=== PATIENT | female | born 1990 | race Caucasian/White ===

== ENCOUNTER 2019-05-17 10:33 | Emergency (ER) | payer BC, SELFPAY ==
[2019-05-17 10:45] VITALS: BP 107/62; PULSE 63; RESP 20; TEMP 36.8; O2SAT 100
--- NOTE | 2019-05-17 10:45 | ED.URI ---
HPI - URI/Sore Throat General Chief Complaint: Upper Respiratory Infection Stated Complaint: cough/drainage Source: patient and RN notes reviewed Mode of arrival: ambulatory Limitations: no limitations History of Present Illness HPI Narrative: 28-year-old female presents with concern for 2-week history of sinus drainage, postnasal drainage, sore throat. Reports occasional cough from drainage. Reports taking ibuprofen with no relief. She denies fever, chills, body aches, malaise. MD elicited complaint: sore throat Related Data Allergies Allergy/AdvReac Type Severity Reaction Status Date / Time No Known Allergies Allergy Verified 05/17/19 10:47 Review of Systems Review of Systems: Narrative: CONSTITUTIONAL: Denies malaise, chills, sweats, or fever. EYES: Denies visual changes, redness, or discharge. ENT: Reports rhinorrhea, congestion, sinus pain, otalgia and sore throat. CARDIOVASCULAR: Denies chest pain, palpitations, or edema. RESPIRATORY: Reports occasional cough. Denies dyspnea. GASTROINTESTINAL: Denies abdominal pain, nausea, vomiting, diarrhea SKIN: Denies rash or itching. MUSCULOSKELETAL: Denies myalgia. NEUROLOGIC: Denies headache. All systems reviewed & are unremarkable except as noted in HPI and below PMFSH Comments At time of signature, agree with nursing past medical, surgical, social and family history. There is no relevant family history pertinent to the presenting complaint Exam Narrative: Exam Narrative: GENERAL: Well-appearing, well-nourished, and in no acute distress. HEAD: Normocephalic EYES: PERRLA, conjunctivae clear ENT: Nares clear, turbinates edematous and erythematous, green discharge, sinus tenderness. Mucous membranes moist. TM pearly villalba with dull light reflex bilaterally; no tragal tenderness. Oropharynx erythematous without lesions. Tonsils not enlarged and without exudate, no drooling, no hoarseness, no trismus. NECK: Supple. No lymphadenopathy CHEST: Clear to auscultation, breath sounds equal. No wheezing, rhonchi, rales, or stridor. No respiratory distress, speaks in full sentences. HEART: Regular rate and rhythm. No murmur heard. Normal peripheral pulses. SKIN: Warm, dry, no rash. NEURO: Alert and oriented x3. PSYCH: Normal mood and affect Course Course Emergency Course: Patient is aware of diagnosis, understands and agrees to treatment plan. Anticipatory guidance given. Patient agrees to follow-up as directed and is aware of reasons to seek care at the emergency department. Portions of this record may have been created with voice recognition software Vital Signs Vital signs: Vital Signs Temperature 98.3 F 05/17/19 10:45 Pulse Rate 63 05/17/19 10:45 Respiratory Rate 20 05/17/19 10:45 Blood Pressure 107/62 05/17/19 10:45 Pulse Oximetry 100 05/17/19 10:45 Temperature 98.3 F 05/17/19 10:45 Pulse Rate 63 05/17/19 10:45 Respiratory Rate 20 05/17/19 10:45 Blood Pressure 107/62 05/17/19 10:45 Pulse Oximetry 100 05/17/19 10:45 Reviewed. MDM - URI/Sore Throat MDM Narrative Medical decision making narrative: Differential diagnosis considered: Strep pharyngitis, allergic rhinitis, upper respiratory tract infection, sinusitis, rhinosinusitis, nasopharyngitis. viral pharyngitis, otitis media, otitis externa, pneumonia, bronchitis, viral cough syndrome, viral syndrome, and influenza. Exam findings show no acute concerns or changes; patient is non-toxic appearing and is in no distress. Patient is appropriate for outpatient treatment and follow-up. Lab Data Labs: Strep Screen Presumptive Negative *(Reference Range: Negative)* Critical Care Time Critical Care Time Critical Care Time: No Discharge Plan Discharge Clinical Impression: Acute bacterial sinusitis Patient Disposition: Home, Self-Care Condition: Stable Instructions: Antibiotic Form Additional Instructions: Take medications as directed Nonprescripti
== END 2019-05-17 11:10 | disposition home or self-care (01) ==
PROVIDERS: Emergency Provider Nurse Practitioner
DX: J01.90 Acute sinusitis, unspecified (principal)
CPT/HCPCS: 87081; 87880; 99213; G0463

== ENCOUNTER 2019-06-20 12:14 | Emergency (ER) | payer BC, SELFPAY ==
[2019-06-20 12:18] VITALS: BP 113/81; PULSE 80; RESP 16; TEMP 36.3; O2SAT 100
--- NOTE | 2019-06-20 12:30 | ED.GENADULT ---
HPI - General Adult General Chief complaint: Upper Respiratory Infection Stated complaint: COUGH/SORE THROAT/CONGESTION Time Seen by Provider: 06/20/19 12:32 Source: patient and RN notes reviewed Mode of arrival: ambulatory Limitations: no limitations History of Present Illness HPI narrative: This is a 28 years old female presents to the office for an evaluation of cough for two weeks. Associated with fever, sore throat and congestion. 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 She got a phone call this morning that her test was negative. She concerns about going back to work on Thursday; would like me to write a note for her manager [employer] so maybe they can pull her off the COVID unit. She has been taking Mucinex for cough. Related Data Home Medications Medication Instructions Recorded Confirmed Mucinex 06/20/19 Allergies Allergy/AdvReac Type Severity Reaction Status Date / Time No Known Allergies Allergy Verified 06/20/19 12:29 Review of Systems Review of Systems: Narrative: CONSTITUTIONAL: Denies fever or chills for the last few days ENT: Reports bad sore throat and nasal congestion CARDIOVASCULAR: Denies chest pain RESPIRATORY: Denies dyspnea, wheezing. Reports cough GASTROINTESTINAL: Denies abdominal pain, nausea, vomiting SKIN: Denies rash MUSCULOSKELETAL: Denies acute back pain NEUROLOGIC: Denies lightheaded PMFSH Social History Social History (Updated 06/20/19 @ 13:01 by JAIME Boyle) Smoking status: Never smoker Comments At time of signature, I agree with nursing past medical, surgical, social and family history. There is no relevant family history pertinent to the presenting complaint. Exam Narrative: Exam Narrative: GENERAL: This is a well-nourished, well-developed patient, in no apparent distress. EARS: External ears normal, auditory canals clear and without drainage, TMs normal without perforation. Hearing grossly intact. NOSE: External nose normal with no obvious nasal discharge, nares without redness, no rhinorrhea. THROAT: Mucous membranes moist, posterior pharynx clear. NECK: Neck supple, non-tender without lymphadenopathy, masses or thyromegaly. CARDIOVASCULAR: Regular rate and rhythm without murmurs, gallops, or rubs. RESPIRATORY: Clear to auscultation. Breath sounds equal bilaterally. No wheezes, rales, or rhonchi. GASTROINTESTINAL: Abdomen soft, non-tender, nondistended. Bowel sounds are active. No hepato-splenomegaly, or palpable masses. No guarding. SKIN: warm, intact with no suspicious lesions or rash, good texture and turgor. NEURO: awake, alert, and oriented to person, place and time. There were no obvious focal neurologic abnormalities. Steady gait [place] Coma Scale Eye Opening: Spontaneous 4 [place] Coma Scale Motor: Obeys Commands 6 [place] Coma Scale Verbal: Oriented 5 Course Vital Signs Vital signs: Vital Signs Temperature 97.4 F L 06/20/19 12:18 Pulse Rate 80 06/20/19 12:18 Respiratory Rate 16 06/20/19 12:18 Blood Pressure 113/81 06/20/19 12:18 Pulse Oximetry 100 06/20/19 12:18 Temperature 97.4 F L 06/20/19 12:18 Pulse Rate 80 06/20/19 12:18 Respiratory Rate 16 06/20/19 12:18 Blood Pressure 113/81 06/20/19 12:18 Pulse Oximetry 100 06/20/19 12:18 Medical Decision Making MDM Narrative Medical decision making narrative: Discharge instructions reviewed with patient, as well as provided in writing per nursing staff. The instructions also include specific and strict return/GO TO THE ER as well as f/u information. All questions have been answered, and the patient deny any further questions with discharge and discharge plan. Differential Diagnosis Differential Diagnosis: pneumonia, Allergic Rhinitis, Upper respiratory cough syndrome, Pharyngitis, Sinusitis, Bronchitis, otitis media, viral URI, Asthma/reactive airway disease, influenza
== END 2019-06-20 13:00 | disposition home or self-care (01) ==
PROVIDERS: Emergency Provider Nurse Practitioner
DX: J06.9 Acute upper respiratory infection, unspecified (principal); R05 Cough
CPT/HCPCS: 87081; 87880; 99213; G0463

== ENCOUNTER 2021-02-09 11:06 | Emergency (ER) | payer BC, SELFPAY ==
[2021-02-09 11:22] VITALS: BP 112/71; PULSE 99; RESP 18; TEMP 36.6; O2SAT 99
--- NOTE | 2021-02-09 12:00 | ED.URI ---
HPI - URI/Sore Throat General Chief Complaint: Upper Respiratory Infection Stated Complaint: fever,bodyaches and chills Source: patient and RN notes reviewed Limitations: no limitations History of Present Illness HPI Narrative: The vaccinated patient, a non-smoker/nondrinker ICU nurse, presents with a 2-day history of chills and possible fever to 99. There is associated myalgias with headache; no sore throat, earache, cough, vomiting/diarrhea. No loss of taste/smell, CP, wheezing/sneezing, S OB?she has had Covid illness also. She did has some mild abdominal cramps somewhat in LLQ; no frequency/urgency/dysuria, , stool changes, vaginal bleeding/discharge-she is on control [without cycles] Related Data Home Medications Medication Instructions Recorded Confirmed norethindrone ac-eth estradiol 1 tablet PO DAILY 02/09/21 02/09/21 [Microgestin 04/04 ()] Allergies Allergy/AdvReac Type Severity Reaction Status Date / Time No Known Allergies Allergy Verified 02/09/21 11:32 Review of Systems Review of Systems: General/Constitutional: No weight loss, POSSIBLE fever Eyes: N0: Redness,discharge Ears/Nose/Throat: No: Epistaxis,ear discharge Respiratory: Denies: Hemoptysis Gastrointestinal: No Vomiting, Bleeding-rectal Skin: No Lumps, eruption Neurologic: No Focal Weakness,Sz Hematologic: Denies: Petechiae/Purpura Psychiatric: No: Suicida ideationl All Other Systems: Reviewed and Negative [facility] Social History Social History (Updated 06/20/19 @ 13:01 by JAIME Boyle) Smoking status: Never smoker Comments At time of signature, agree with nursing past medical, surgical, social and family history. There is no relevant family history pertinent to the presenting complaint Exam Narrative: General Appearance: Well appearing, No distress EYE: PERRLA, Conjunctiva clear Ears: External ear normal Nose: Normal nose Mouth/Throat: Normal appearing, Normal lips Neck: Supple Respiratory: Airway patent, No respiratory distress Cardiovascular: RRR Abdomen: Soft, Non-tender, No massess, No organomegaly (no rebound/ surgical signs), Musculoskeletal: Full ROM Skin: Warm, Dry Neurological: A&O x3, CN II-X intact Psychiatric: Normal mood, Normal affect Course Vital Signs Vital signs: Vital Signs Temperature 98 F 02/09/21 11:22 Pulse Rate 99 02/09/21 11:22 Respiratory Rate 18 02/09/21 11:22 Blood Pressure 112/71 02/09/21 11:22 Pulse Oximetry 99 02/09/21 11:22 Temperature 98 F 02/09/21 11:22 Pulse Rate 99 02/09/21 11:22 Respiratory Rate 18 02/09/21 11:22 Blood Pressure 112/71 02/09/21 11:22 Pulse Oximetry 99 02/09/21 11:22 MDM - URI/Sore Throat Lab Data Labs: Lab Results 02/09/21 Range/Units Unknown POC SARS CoV-2 Ag Negative (Negative) Urine Glucose Negative Reference Range: Negative Urine Bilirubin Negative Reference Range: Negative Urine Ketone Negative Reference Range: Negative Urine Specific [place] 1.020 Reference Range:1.001-1.035 Urine Blood Negative Reference Range: Negative * * Urine pH 6.0 Reference Range: 5.0-9.0 Urine Protein Negative Reference Range: Negative Urine Urobilinogen 0.2 Reference Range: 0.2-1.0 Urine Nitrate Negative Reference Range: Negative
== END 2021-02-09 12:08 | disposition home or self-care (01) ==
PROVIDERS: Emergency Provider Emergency Medicine
DX: J11.1 Influenza due to unidentified influenza virus with other respiratory manifestations (principal); Z20.822 Contact with and (suspected) exposure to COVID-19; K21.9 Gastro-esophageal reflux disease without esophagitis
CPT/HCPCS: 81003; 87426; 99213; C9803; G0463

== ENCOUNTER 2023-02-04 11:35 | Emergency (ER) | payer BC, SELFPAY ==
[2023-02-04 11:46] VITALS: BP 99/47; PULSE 72; RESP 16; TEMP 36.1; O2SAT 100
--- NOTE | 2023-02-04 11:54 | ED.URI ---
HPI - URI/Sore Throat General Chief Complaint: Upper Respiratory Infection Stated Complaint: Sore Throat,Congestion Time Seen by Provider: 02/04/23 11:54 Source: patient Mode of arrival: ambulatory Limitations: no limitations History of Present Illness HPI Narrative: 32 yo F presents with c/o sore throat, fatigue for 2 days. Son went to PCP today and tested positive for strep. All systems reviewed and negative except as noted above. Related Data Home Medications Medication Instructions Recorded Confirmed norethindrone acetate 1 mg-ethinyl 1 tablet PO DAILY 02/09/21 02/04/23 estradiol 20 mcg tablet (Microgestin) Allergies Allergy/AdvReac Type Severity Reaction Status Date / Time No Known Allergies Allergy Verified 02/04/23 11:37 Review of Systems Review of Systems: CONSTITUTIONAL: Denies fever, chills, or sweats. Reports fatigue. EYES: Denies visual changes, redness, or discharge. ENT: Denies rhinorrhea, congestion . Reports sore throat. Denies otalgia. CARDIOVASCULAR: Denies chest pain, palpitations, or edema. RESPIRATORY: Denies cough or dyspnea. GASTROINTESTINAL: Denies abdominal pain, nausea, vomiting, or diarrhea. GENITOURINARY: Denies dysuria or hematuria. SKIN: Denies rash or itching. MUSCULOSKELETAL: Denies back pain, joint pain, or myalgia. NEUROLOGIC: Denies headache, numbness, or weakness. PSYCHIATRIC: Denies anxiety or depression. All other systems reviewed are negative, except as documented in HPI. PMFSH Social History Social History (Updated 06/20/19 @ 13:01 by JAIME Boyle) Smoking status: Never smoker Comments At time of signature, agree with nursing past medical, surgical, social and family history. There is no relevant family history pertinent to the presenting complaint. Exam Narrative: GENERAL: This is a well-nourished, well-developed patient, in no apparent distress. HEAD: normocephalic, atraumatic. EYES: PERRL. Sclera clear/white. Vision is grossly intact. EARS: External ears normal, auditory canals clear and without drainage, TMs normal without perforation. Hearing grossly intact. NOSE: External nose normal with no obvious nasal discharge, nares without redness, no rhinorrhea. THROAT: Mucous membranes moist, erythema swelling. No exudates. NECK: Neck supple, non-tender without lymphadenopathy, masses or thyromegaly. CARDIOVASCULAR: Regular rate and rhythm without murmurs, gallops, or rubs. RESPIRATORY: Clear to auscultation. Breath sounds equal bilaterally. No wheezes, rales, or rhonchi. SKIN: warm, Dry, intact with no suspicious lesions or rash, good texture and turgor. NEURO: awake, alert, and oriented to person, place and time. There were no obvious focal neurologic abnormalities. EXTREMITIES: No joint tenderness, effusion, or edema noted. Course Course Level of Care: Express Care Visit Vital Signs Vital signs: Vital Signs Temperature 36.1 C L 02/04/23 11:46 Pulse Rate 72 02/04/23 11:46 Respiratory Rate 16 02/04/23 11:46 Blood Pressure 99/47 L 02/04/23 11:46 Pulse Oximetry 100 02/04/23 11:46 Oxygen Delivery Room Air 02/04/23 11:46 Temperature 36.1 C L 02/04/23 11:46 Pulse Rate 72 02/04/23 11:46 Respiratory Rate 16 02/04/23 11:46 Blood Pressure 110/78 02/04/23 12:13 Pulse Oximetry 100 02/04/23 11:46 Oxygen Delivery Room Air 02/04/23 11:46 Review MDM - URI/Sore Throat MDM Narrative Medical decision making narrative: Patient is aware of diagnosis, understands and agrees to treatment plan. Anticipatory guidance given. Patient agrees to follow-up as directed and is aware of reasons to seek care at the emergency department. Portions of this record may have been created with voice recognition software neg rapid strep. Will treat pt with abx due to exam findings and strep exposure. Differential Diagnosis Differential diagnosis: Likely pharyngitis Lab Data Labs: Strep Screen
[2023-02-04 12:13] VITALS: BP 110/78
== END 2023-02-04 12:17 | disposition home or self-care (01) ==
PROVIDERS: Emergency Provider Nurse Practitioner Family
DX: J02.9 Acute pharyngitis, unspecified (principal)
CPT/HCPCS: 87081; 87880; 99213; G0463